=== PATIENT | male | born 1955 | race Caucasian/White ===

== ENCOUNTER 2021-04-16 13:22 | Inpatient (IN) | payer BC ==
[~2021-04-16] VITALS: Ht 175.3 cm; Wt 73.7 kg
--- NOTE | 2021-04-16 14:00 | NUR ---
DR. POWER AT BEDSIDE FOR EVAL.
--- NOTE | 2021-04-16 14:04 | NUR ---
PT HERE WITH C/O FEVER/CHILLS ON AND OFF AND LOW O2 READINGS AT HOME DOWN TO 77%, RECENTLY DX WITH COVID ON 04/10. PLACED ON ALL MONITORS, SPO2 94% ON 6L NC.
[2021-04-16 14:13] LABS: BASOPHILS % (AUTO) 1 % (0-1); EOSINOPHILS % (AUTO) 0 % (1-7); LYMPHOCYTES % (AUTO) 14 % (22-44); MEAN CORPUSCULAR HEMOGLOBIN 29.6 pg (27.5-34.5); MEAN CORPUSCULAR HGB CONC 34.4 g/dL (33.2-36.2); MEAN PLATELET VOLUME 8.6 fL (7.4-10.4); MONOCYTES % (AUTO) 8 % (2-9); NEUTROPHILS % (AUTO) 77 % (42-75); PLATELET COUNT 182 x10^3/uL (130-400); RED BLOOD COUNT 5.88 x10^6/uL (4.38-5.82)
[2021-04-16 14:18] LABS: ANION GAP 8 mmol/L (5-15); CALCIUM 9.3 mg/dL (8.5-10.1); CHLORIDE 100 mmol/L (98-107)
[2021-04-16] MEDS ORDERED: DEXAMETHASONE 4 MG/ML, 1ML IV ONE (14:30)
[2021-04-16] MEDS ORDERED: DEXAMETHASONE 4 MG/ML, 1ML ONE (14:35)
[2021-04-16] MEDS ORDERED: morphine SULFATE 10 MG/ML, 1ML IVPush PRN (15:00)
[2021-04-16] MEDS ORDERED: SODIUM CHLORIDE 0.9% 1,000 ML IV ONE (15:00)
[2021-04-16] MEDS ORDERED: ACETAMINOPHEN 325 MG TABLET PO PRN (15:00)
[2021-04-16 15:02] LABS: TROPONIN I < 0.015 ng/mL (0.000-0.045)
[2021-04-16] MEDS: AMPICILLIN/SULBACTAM 3 GM in SODIUM CHLORIDE 0.9% 100 ML IV SCH ×2 (15:09→17:43)
--- NOTE | 2021-04-16 15:13 | NUR ---
REPORT FROM CECILIO. UNASYN AND IVF INFUSING PER ORDER. PT TRANSPORTED TO FLOOR.
--- NOTE | 2021-04-16 15:14 | NUR ---
CALL TO PT'S TO NOTIFY OF ADMIT ROOM NUMBER.
[2021-04-16] MEDS ORDERED: REMDESIVIR 200 MG in SODIUM CHLORIDE 0.9% 250 ML IVPB ONE (15:30)
[2021-04-16 15:59] VITALS: BP 111/68
[2021-04-16 16:15] LABS: ALBUMIN 3.1 g/dL (3.4-5.0)
[2021-04-16] MEDS: ASCORBIC ACID 250 MG TAB PO SCH (16:17)
[2021-04-16 16:18] LABS: BILIRUBIN, DIRECT 0.3 mg/dL (0.1-0.2); BILIRUBIN,INDIRECT 0.7 mg/dL (0.0-2.0); TOTAL PROTEIN 6.7 g/dL (6.4-8.2)
[2021-04-16] MEDS: SODIUM CHLORIDE 0.9% 1,000 ML IV SCH (16:18)
[2021-04-16] MEDS: HEPARIN 5,000 UNITS/ML, 1ML SQ SCH (17:46)
[2021-04-16 19:44] VITALS: BP 109/70
[2021-04-16] MEDS ORDERED: AMOX-291 PO (22:21)
[2021-04-16 23:57] VITALS: BP 99/62
[2021-04-17] MEDS: SODIUM CHLORIDE 0.9% 1,000 ML IV SCH ×3 (00:35→17:54)
[2021-04-17] MEDS: HEPARIN 5,000 UNITS/ML, 1ML SQ SCH ×3 (01:55→17:54)
[2021-04-17 05:13] LABS: BASOPHILS % (AUTO) 1 % (0-1); EOSINOPHILS % (AUTO) 0 % (1-7); LYMPHOCYTES % (AUTO) 19 % (22-44); MEAN CORPUSCULAR HEMOGLOBIN 29.1 pg (27.5-34.5); MEAN CORPUSCULAR HGB CONC 34.2 g/dL (33.2-36.2); MEAN PLATELET VOLUME 8.2 fL (7.4-10.4); MONOCYTES % (AUTO) 11 % (2-9); NEUTROPHILS % (AUTO) 70 % (42-75); PLATELET COUNT 173 x10^3/uL (130-400); RED BLOOD COUNT 5.48 x10^6/uL (4.38-5.82); RED CELL DISTRIBUTION WIDTH 13.6 % (9.4-14.8)
[2021-04-17 05:24] LABS: ALANINE AMINOTRANSFERASE 84 U/L (12-78); ALBUMIN 2.4 g/dL (3.4-5.0); ANION GAP 6 mmol/L (5-15); CALCIUM 8.2 mg/dL (8.5-10.1); CHLORIDE 107 mmol/L (98-107)
[2021-04-17 05:27] LABS: ALKALINE PHOSPHATASE 46 U/L (45-117); BILIRUBIN,TOTAL 0.7 mg/dL (0.2-1.0); CREATININE 0.95 mg/dL (0.7-1.3); TOTAL PROTEIN 6.3 g/dL (6.4-8.2)
[2021-04-17 07:49] VITALS: BP 109/74
[2021-04-17] MEDS: ASCORBIC ACID 250 MG TAB PO SCH ×2 (08:24→17:54)
[2021-04-17] MEDS: ZINC SULFATE 220 MG CAPSULE PO SCH (08:24)
[2021-04-17] MEDS: DEXAMETHASONE 4 MG TABLET PO SCH (08:25)
[2021-04-17] MEDS: AMPICILLIN/SULBACTAM 3 GM in SODIUM CHLORIDE 0.9% 100 ML IV SCH ×2 (11:27→17:54)
[2021-04-17 13:59] VITALS: BP 131/79
[2021-04-17] MEDS: REMDESIVIR 100 MG in SODIUM CHLORIDE 0.9% 250 ML IVPB SCH (15:27)
[2021-04-17 18:56] VITALS: BP 122/72
[2021-04-18 00:41] VITALS: BP 128/65
[2021-04-18] MEDS: SODIUM CHLORIDE 0.9% 1,000 ML IV SCH ×2 (02:39→15:59)
[2021-04-18] MEDS: HEPARIN 5,000 UNITS/ML, 1ML SQ SCH ×3 (02:39→17:45)
[2021-04-18] MEDS: AMPICILLIN/SULBACTAM 3 GM in SODIUM CHLORIDE 0.9% 100 ML IV SCH ×3 (02:39→19:30)
[2021-04-18 05:34] LABS: ALANINE AMINOTRANSFERASE 68 U/L (12-78); ALBUMIN 2.1 g/dL (3.4-5.0); ANION GAP 7 mmol/L (5-15); BASOPHILS % (AUTO) 0 % (0-1); CALCIUM 8.1 mg/dL (8.5-10.1); CHLORIDE 110 mmol/L (98-107); EOSINOPHILS % (AUTO) 0 % (1-7); LYMPHOCYTES % (AUTO) 10 % (22-44); MEAN CORPUSCULAR HEMOGLOBIN 29.3 pg (27.5-34.5); MEAN CORPUSCULAR HGB CONC 34.3 g/dL (33.2-36.2); MEAN PLATELET VOLUME 8.7 fL (7.4-10.4); MONOCYTES % (AUTO) 8 % (2-9); NEUTROPHILS % (AUTO) 82 % (42-75); PLATELET COUNT 209 x10^3/uL (130-400); RED BLOOD COUNT 5.14 x10^6/uL (4.38-5.82); RED CELL DISTRIBUTION WIDTH 13.7 % (9.4-14.8)
[2021-04-18 05:37] LABS: ALKALINE PHOSPHATASE 43 U/L (45-117); BILIRUBIN,TOTAL 0.5 mg/dL (0.2-1.0); TOTAL PROTEIN 5.7 g/dL (6.4-8.2)
[2021-04-18 08:02] VITALS: BP 130/67
[2021-04-18] MEDS: DEXAMETHASONE 4 MG TABLET PO SCH (09:17)
[2021-04-18] MEDS: ASCORBIC ACID 250 MG TAB PO SCH ×2 (09:17→17:45)
[2021-04-18] MEDS: CHOLECALCIFEROL 5,000u TAB PO SCH (09:17)
[2021-04-18] MEDS: ZINC SULFATE 220 MG CAPSULE PO SCH (09:17)
[2021-04-18] MEDS: THIAMINE 100MG TABLET PO SCH ×2 (09:18→21:09)
[2021-04-18 13:20] VITALS: BP 130/75
[2021-04-18] MEDS: REMDESIVIR 100 MG in SODIUM CHLORIDE 0.9% 250 ML IVPB SCH (15:59)
[2021-04-18] MEDS ORDERED: OMNIPAQUE 350 MG/ML, 100ML BOTTLE ONE (18:10)
[2021-04-18 19:16] VITALS: BP 152/76
[2021-04-18] MEDS: MELATONIN 5 MG TABLET PO SCH (21:09)
[2021-04-19 00:11] VITALS: BP 137/79
[2021-04-19] MEDS: HEPARIN 5,000 UNITS/ML, 1ML SQ SCH ×3 (03:26→17:38)
[2021-04-19] MEDS: AMPICILLIN/SULBACTAM 3 GM in SODIUM CHLORIDE 0.9% 100 ML IV SCH ×3 (03:26→19:03)
[2021-04-19 05:09] LABS: BASOPHILS % (AUTO) 0 % (0-1); EOSINOPHILS % (AUTO) 0 % (1-7); LYMPHOCYTES % (AUTO) 5 % (22-44); MEAN CORPUSCULAR HEMOGLOBIN 29.2 pg (27.5-34.5); MEAN CORPUSCULAR HGB CONC 34.5 g/dL (33.2-36.2); MEAN PLATELET VOLUME 8.3 fL (7.4-10.4); MONOCYTES % (AUTO) 8 % (2-9); NEUTROPHILS % (AUTO) 87 % (42-75); PLATELET COUNT 244 x10^3/uL (130-400); RED BLOOD COUNT 5.13 x10^6/uL (4.38-5.82); RED CELL DISTRIBUTION WIDTH 14.2 % (9.4-14.8)
[2021-04-19 05:24] LABS: CHLORIDE 109 mmol/L (98-107)
[2021-04-19 05:25] LABS: D-DIMER 0.51 ug/mlFEU (0.00-0.52)
[2021-04-19 05:49] LABS: ALANINE AMINOTRANSFERASE 59 U/L (12-78); ALBUMIN 2.2 g/dL (3.4-5.0); ALKALINE PHOSPHATASE 43 U/L (45-117); ANION GAP 7 mmol/L (5-15); BILIRUBIN,TOTAL 0.6 mg/dL (0.2-1.0); CALCIUM 8.3 mg/dL (8.5-10.1); CREATININE 0.85 mg/dL (0.7-1.3); TOTAL PROTEIN 5.6 g/dL (6.4-8.2)
[2021-04-19 07:23] VITALS: BP 116/69
[2021-04-19] MEDS ORDERED: POTASSIUM CHLORIDE 20 MEQ TAB.ER.PRT PO ONE (07:30)
[2021-04-19] MEDS: ASCORBIC ACID 250 MG TAB PO SCH ×2 (07:59→16:12)
[2021-04-19] MEDS: CHOLECALCIFEROL 5,000u TAB PO SCH (07:59)
[2021-04-19] MEDS: DEXAMETHASONE 4 MG TABLET PO SCH (07:59)
[2021-04-19] MEDS: THIAMINE 100MG TABLET PO SCH ×2 (08:00→20:50)
[2021-04-19] MEDS: ZINC SULFATE 220 MG CAPSULE PO SCH (08:00)
[2021-04-19] MEDS: POTASSIUM CHLORIDE 20 MEQ TAB.ER.PRT PO SCH ×2 (13:35→16:12)
[2021-04-19] MEDS: FUROSEMIDE 20 MG/2 ML IV SCH ×3 (13:35→20:50)
[2021-04-19 13:39] VITALS: BP 129/80
[2021-04-19] MEDS: REMDESIVIR 100 MG in SODIUM CHLORIDE 0.9% 250 ML IVPB SCH (16:11)
[2021-04-19 19:08] VITALS: BP 109/70
[2021-04-19] MEDS: MELATONIN 5 MG TABLET PO SCH (20:50)
[2021-04-20 00:37] VITALS: BP 116/73
[2021-04-20] MEDS: HEPARIN 5,000 UNITS/ML, 1ML SQ SCH ×3 (01:27→16:34)
[2021-04-20] MEDS: AMPICILLIN/SULBACTAM 3 GM in SODIUM CHLORIDE 0.9% 100 ML IV SCH ×3 (03:04→20:10)
[2021-04-20 06:02] LABS: CHLORIDE 106 mmol/L (98-107)
[2021-04-20 06:12] LABS: ALANINE AMINOTRANSFERASE 62 U/L (12-78); ALBUMIN 2.6 g/dL (3.4-5.0); ALKALINE PHOSPHATASE 48 U/L (45-117); ANION GAP 8 mmol/L (5-15); BILIRUBIN,TOTAL 0.8 mg/dL (0.2-1.0); CALCIUM 8.8 mg/dL (8.5-10.1); CREATININE 0.91 mg/dL (0.7-1.3); TOTAL PROTEIN 6.2 g/dL (6.4-8.2)
[2021-04-20 06:18] LABS: BASOPHILS % (AUTO) 0 % (0-1); EOSINOPHILS % (AUTO) 0 % (1-7); LYMPHOCYTES % (AUTO) 5 % (22-44); MEAN CORPUSCULAR HEMOGLOBIN 29.1 pg (27.5-34.5); MEAN CORPUSCULAR HGB CONC 34.1 g/dL (33.2-36.2); MEAN PLATELET VOLUME 8.6 fL (7.4-10.4); MONOCYTES % (AUTO) 9 % (2-9); NEUTROPHILS % (AUTO) 86 % (42-75); PLATELET COUNT 271 x10^3/uL (130-400); RED BLOOD COUNT 5.44 x10^6/uL (4.38-5.82); RED CELL DISTRIBUTION WIDTH 13.7 % (9.4-14.8)
[2021-04-20 08:07] VITALS: BP 100/67
[2021-04-20] MEDS: DEXAMETHASONE 4 MG TABLET PO SCH (08:17)
[2021-04-20] MEDS: ASCORBIC ACID 250 MG TAB PO SCH ×2 (08:17→16:33)
[2021-04-20] MEDS: THIAMINE 100MG TABLET PO SCH ×2 (08:17→20:09)
[2021-04-20] MEDS: FUROSEMIDE 20 MG/2 ML IV SCH ×3 (08:17→20:09)
[2021-04-20] MEDS: ZINC SULFATE 220 MG CAPSULE PO SCH (08:18)
[2021-04-20] MEDS: POTASSIUM CHLORIDE 20 MEQ TAB.ER.PRT PO SCH ×3 (08:18→16:32)
[2021-04-20] MEDS: CHOLECALCIFEROL 5,000u TAB PO SCH (08:18)
[2021-04-20 13:32] VITALS: BP 123/79
[2021-04-20] MEDS: REMDESIVIR 100 MG in SODIUM CHLORIDE 0.9% 250 ML IVPB SCH (15:04)
[2021-04-20 19:37] VITALS: BP 126/74
[2021-04-20] MEDS: MELATONIN 5 MG TABLET PO SCH (20:09)
[2021-04-21 01:03] VITALS: BP 99/66
[2021-04-21] MEDS: HEPARIN 5,000 UNITS/ML, 1ML SQ SCH ×3 (01:40→16:32)
[2021-04-21] MEDS: AMPICILLIN/SULBACTAM 3 GM in SODIUM CHLORIDE 0.9% 100 ML IV SCH ×3 (04:10→20:07)
[2021-04-21 05:52] LABS: CHLORIDE 105 mmol/L (98-107)
[2021-04-21 05:57] LABS: D-DIMER 0.3 ug/mlFEU (0.00-0.52)
[2021-04-21 05:58] LABS: ALANINE AMINOTRANSFERASE 56 U/L (12-78); ALBUMIN 2.5 g/dL (3.4-5.0); ALKALINE PHOSPHATASE 49 U/L (45-117); ANION GAP 6 mmol/L (5-15); BILIRUBIN,TOTAL 0.8 mg/dL (0.2-1.0); C-REACTIVE PROTEIN, QUANT 0.64 mg/dL (0.02-0.49); CALCIUM 9.1 mg/dL (8.5-10.1); TOTAL PROTEIN 6.2 g/dL (6.4-8.2)
[2021-04-21 07:41] VITALS: BP 126/81
[2021-04-21] MEDS: CHOLECALCIFEROL 5,000u TAB PO SCH (09:42)
[2021-04-21] MEDS: ASCORBIC ACID 250 MG TAB PO SCH ×2 (09:42→16:32)
[2021-04-21] MEDS: DEXAMETHASONE 4 MG TABLET PO SCH (09:42)
[2021-04-21] MEDS: POTASSIUM CHLORIDE 20 MEQ TAB.ER.PRT PO SCH ×3 (09:42→16:32)
[2021-04-21] MEDS: FUROSEMIDE 20 MG/2 ML IV SCH ×3 (09:42→21:41)
[2021-04-21] MEDS: ZINC SULFATE 220 MG CAPSULE PO SCH (09:43)
[2021-04-21] MEDS: THIAMINE 100MG TABLET PO SCH ×2 (09:43→20:07)
[2021-04-21 12:12] VITALS: BP 103/70
[2021-04-21] MEDS: REMDESIVIR 100 MG in SODIUM CHLORIDE 0.9% 250 ML IVPB SCH (16:31)
[2021-04-21 19:20] VITALS: BP 105/68
[2021-04-21] MEDS: MELATONIN 5 MG TABLET PO SCH (20:07)
[2021-04-22 01:31] VITALS: BP 99/70
[2021-04-22] MEDS: HEPARIN 5,000 UNITS/ML, 1ML SQ SCH ×3 (01:34→16:21)
[2021-04-22] MEDS: AMPICILLIN/SULBACTAM 3 GM in SODIUM CHLORIDE 0.9% 100 ML IV SCH ×3 (04:09→22:53)
[2021-04-22 06:01] LABS: CHLORIDE 101 mmol/L (98-107)
[2021-04-22 06:11] LABS: ANION GAP 5 mmol/L (5-15)
[2021-04-22 08:00] VITALS: BP 108/78
[2021-04-22] MEDS: ZINC SULFATE 220 MG CAPSULE PO SCH (10:02)
[2021-04-22] MEDS: THIAMINE 100MG TABLET PO SCH ×2 (10:02→20:51)
[2021-04-22] MEDS: ASCORBIC ACID 250 MG TAB PO SCH ×2 (10:02→16:22)
[2021-04-22] MEDS: CHOLECALCIFEROL 5,000u TAB PO SCH (10:02)
[2021-04-22] MEDS: POTASSIUM CHLORIDE 20 MEQ TAB.ER.PRT PO SCH ×3 (10:03→16:21)
[2021-04-22] MEDS: DEXAMETHASONE 4 MG TABLET PO SCH (10:03)
[2021-04-22] MEDS: FUROSEMIDE 20 MG/2 ML IV SCH ×3 (10:03→20:51)
[2021-04-22 15:40] VITALS: BP 100/71
[2021-04-22] MEDS: REMDESIVIR 100 MG in SODIUM CHLORIDE 0.9% 250 ML IVPB SCH (16:18)
[2021-04-22 21:00] VITALS: BP 96/59
[2021-04-22] MEDS: MELATONIN 5 MG TABLET PO SCH (21:00)
[2021-04-23 02:05] VITALS: BP 108/70
[2021-04-23] MEDS: HEPARIN 5,000 UNITS/ML, 1ML SQ SCH ×3 (02:09→17:13)
[2021-04-23] MEDS: AMPICILLIN/SULBACTAM 3 GM in SODIUM CHLORIDE 0.9% 100 ML IV SCH ×3 (04:36→20:44)
[2021-04-23 07:39] VITALS: BP 118/75
[2021-04-23] MEDS: ZINC SULFATE 220 MG CAPSULE PO SCH (09:00)
[2021-04-23] MEDS: FUROSEMIDE 20 MG/2 ML IV SCH ×3 (10:13→20:45)
[2021-04-23] MEDS: POTASSIUM CHLORIDE 20 MEQ TAB.ER.PRT PO SCH ×3 (10:15→17:13)
[2021-04-23] MEDS: CHOLECALCIFEROL 5,000u TAB PO SCH (10:16)
[2021-04-23] MEDS: DEXAMETHASONE 4 MG TABLET PO SCH (10:16)
[2021-04-23] MEDS: ASCORBIC ACID 250 MG TAB PO SCH ×2 (10:17→17:14)
[2021-04-23] MEDS: THIAMINE 100MG TABLET PO SCH ×2 (10:17→20:44)
[2021-04-23 12:31] VITALS: BP 117/75
[2021-04-23] MEDS: REMDESIVIR 100 MG in SODIUM CHLORIDE 0.9% 250 ML IVPB SCH (15:38)
[2021-04-23 19:49] VITALS: BP 145/78
[2021-04-23] MEDS: MELATONIN 5 MG TABLET PO SCH (20:44)
[2021-04-24 00:19] VITALS: BP 115/72
[2021-04-24] MEDS: HEPARIN 5,000 UNITS/ML, 1ML SQ SCH ×3 (04:55→22:50)
[2021-04-24] MEDS: AMPICILLIN/SULBACTAM 3 GM in SODIUM CHLORIDE 0.9% 100 ML IV SCH ×3 (04:55→20:40)
[2021-04-24 06:10] LABS: CHLORIDE 98 mmol/L (98-107)
[2021-04-24 06:16] LABS: BASOPHILS % (AUTO) 0 % (0-1); EOSINOPHILS % (AUTO) 1 % (1-7); LYMPHOCYTES % (AUTO) 6 % (22-44); MEAN CORPUSCULAR HEMOGLOBIN 29.1 pg (27.5-34.5); MEAN PLATELET VOLUME 8.3 fL (7.4-10.4); MONOCYTES % (AUTO) 7 % (2-9); NEUTROPHILS % (AUTO) 86 % (42-75); PLATELET COUNT 429 x10^3/uL (130-400); RED BLOOD COUNT 5.71 x10^6/uL (4.38-5.82); RED CELL DISTRIBUTION WIDTH 13.7 % (9.4-14.8)
[2021-04-24 06:19] LABS: ALANINE AMINOTRANSFERASE 51 U/L (12-78); ALBUMIN 2.7 g/dL (3.4-5.0); ALKALINE PHOSPHATASE 57 U/L (45-117); ANION GAP 6 mmol/L (5-15); BILIRUBIN,TOTAL 0.9 mg/dL (0.2-1.0); CALCIUM 9.2 mg/dL (8.5-10.1); CREATININE 1.19 mg/dL (0.7-1.3); TOTAL PROTEIN 6.6 g/dL (6.4-8.2)
[2021-04-24 06:20] LABS: MEAN CORPUSCULAR HGB CONC 33.6 g/dL (33.2-36.2)
[2021-04-24] MEDS: FUROSEMIDE 20 MG/2 ML IV SCH ×3 (09:01→20:41)
[2021-04-24] MEDS: ASCORBIC ACID 250 MG TAB PO SCH ×2 (09:01→16:06)
[2021-04-24] MEDS: ZINC SULFATE 220 MG CAPSULE PO SCH (09:01)
[2021-04-24] MEDS: THIAMINE 100MG TABLET PO SCH ×2 (09:01→20:41)
[2021-04-24] MEDS: CHOLECALCIFEROL 5,000u TAB PO SCH (09:01)
[2021-04-24] MEDS: POTASSIUM CHLORIDE 20 MEQ TAB.ER.PRT PO SCH ×3 (09:01→16:06)
[2021-04-24] MEDS: DEXAMETHASONE 4 MG TABLET PO SCH (09:01)
[2021-04-24 09:06] VITALS: BP 93/64
[2021-04-24 14:14] VITALS: BP 114/76
[2021-04-24] MEDS: REMDESIVIR 100 MG in SODIUM CHLORIDE 0.9% 250 ML IVPB SCH (16:06)
[2021-04-24 20:38] VITALS: BP 100/64
[2021-04-24] MEDS: MELATONIN 5 MG TABLET PO SCH ×2 (20:41→22:51)
[2021-04-25 00:08] VITALS: BP 101/63
[2021-04-25] MEDS: AMPICILLIN/SULBACTAM 3 GM in SODIUM CHLORIDE 0.9% 100 ML IV SCH ×2 (04:57→13:05)
[2021-04-25] MEDS: HEPARIN 5,000 UNITS/ML, 1ML SQ SCH ×2 (05:04→14:00)
[2021-04-25 07:03] LABS: BASOPHILS % (AUTO) 0 % (0-1); EOSINOPHILS % (AUTO) 0 % (1-7); LYMPHOCYTES % (AUTO) 8 % (22-44); MEAN CORPUSCULAR HEMOGLOBIN 28.8 pg (27.5-34.5); MEAN CORPUSCULAR HGB CONC 33.6 g/dL (33.2-36.2); MEAN PLATELET VOLUME 8.2 fL (7.4-10.4); MONOCYTES % (AUTO) 9 % (2-9); NEUTROPHILS % (AUTO) 83 % (42-75); PLATELET COUNT 490 x10^3/uL (130-400); RED CELL DISTRIBUTION WIDTH 13.9 % (9.4-14.8)
[2021-04-25 07:17] LABS: ALANINE AMINOTRANSFERASE 68 U/L (12-78); ALBUMIN 2.6 g/dL (3.4-5.0); ANION GAP 7 mmol/L (5-15); CALCIUM 9.2 mg/dL (8.5-10.1); CHLORIDE 97 mmol/L (98-107)
[2021-04-25 07:20] LABS: ALKALINE PHOSPHATASE 60 U/L (45-117); CREATININE 1.27 mg/dL (0.7-1.3); TOTAL PROTEIN 6.4 g/dL (6.4-8.2)
[2021-04-25 09:55] VITALS: BP 114/80
[2021-04-25] MEDS: CHOLECALCIFEROL 5,000u TAB PO SCH (10:00)
[2021-04-25] MEDS: ASCORBIC ACID 250 MG TAB PO SCH (10:00)
[2021-04-25] MEDS: POTASSIUM CHLORIDE 20 MEQ TAB.ER.PRT PO SCH ×2 (10:00→13:05)
[2021-04-25] MEDS: DEXAMETHASONE 4 MG TABLET PO SCH (10:00)
[2021-04-25] MEDS: THIAMINE 100MG TABLET PO SCH (10:00)
[2021-04-25] MEDS: ZINC SULFATE 220 MG CAPSULE PO SCH (10:00)
[2021-04-25] MEDS: FUROSEMIDE 20 MG/2 ML IV SCH (10:01)
[2021-04-25 13:09] VITALS: BP 100/68
[2021-04-25] MEDS ORDERED: ZINC220C8 PO (13:57)
[2021-04-25] MEDS ORDERED: CHOL500045 PO (13:57)
[2021-04-25] MEDS ORDERED: MELA5TAB14 PO (13:57)
[2021-04-25] MEDS ORDERED: FLUT1AER INH (13:57)
[2021-04-25] MEDS ORDERED: ASCO250T12 PO (13:57)
[2021-04-25] MEDS: REMDESIVIR 100 MG in SODIUM CHLORIDE 0.9% 250 ML IVPB SCH (15:00)
== END 2021-04-25 17:49 | disposition home or self-care (01) | DRG 177 ==
LOC: ED 15:14 → 3N 15:22
PROVIDERS: ADMIT Family Medicine; ATTEND Family Medicine
PROC: XW033E5 Introduction of Remdesivir Anti-infective into Peripheral Vein, Percutaneous Approach, New Technology Group 5 (ICD-10-PCS; principal; 2021-04-16)
DX: U07.1 COVID-19 (principal); J12.82 Pneumonia due to coronavirus disease 2019; J96.01 Acute respiratory failure with hypoxia; E87.2 Acidosis; E87.1 Hypo-osmolality and hyponatremia; N17.9 Acute kidney failure, unspecified; E86.0 Dehydration; J02.0 Streptococcal pharyngitis
CPT/HCPCS: 36415; 71045; 71275; 80048; 80053; 80076; 82040; 82728; 83605; 83615; 83735; 84100; 84145; 84484; 85025; 85379; 85384; 86140; 87040; 87081; 87880; 93005; 96374; 99285; G0378; J0295; J1100; J1644; Q9967; J1940; J7030; J7050